=== PATIENT | female | born 1945 | race Native Hawaiian/Other Pacific Islander ===

== ENCOUNTER 2017-03-01 12:36 | Inpatient (IN) | payer MEDICARE ==
--- NOTE | 2017-03-01 13:46 | C.PDOC ---
History Of Present Illness 72 y/o female with Hx of Bipolar disorder and palpitations presents to ED sent by Dr. Mukherjee with complaints of sob and chest tightness for 5 days. Patient went to see pmd for same symptoms who advised she come to ed for further evaluation.Patient states she is complaint with her medication and denies fever , chills, headache, dizziness, nausea or any other complaints at this time. Time Seen by Provider: 03/01/17 13:19 Chief Complaint (Nursing): Shortness Of Breath History Per: Patient History/Exam Limitations: no limitations Onset/Duration Of Symptoms: Days Current Symptoms Are (Timing): Still Present Quality: Tightness Past Medical History Reviewed: Historical Data, Nursing Documentation, Vital Signs Vital Signs: Last Vital Signs Temp 98.3 F 03/01/17 12:54 Pulse 76 03/01/17 17:30 Resp 15 03/01/17 16:31 BP 111/72 03/01/17 16:31 Pulse Ox 95 03/01/17 18:09 - Medical History PMH: Bipolar Disorder, Hypercholesterolemia Surgical History: No Surg Hx Family History: States: No Known Family Hx - Social History Hx Alcohol Use: No Hx Substance Use: No - Immunization History Hx Tetanus Toxoid Vaccination: No Hx Influenza Vaccination: Yes Hx Pneumococcal Vaccination: No Review Of Systems Constitutional: Negative for: Fever, Chills Cardiovascular: Positive for: Chest Pain Respiratory: Positive for: Shortness of Breath. Negative for: Cough Gastrointestinal: Negative for: Nausea, Vomiting Skin: Negative for: Rash Neurological: Negative for: Headache Physical Exam - Physical Exam Appears: Non-toxic, No Acute Distress Skin: Normal Color, Warm, Dry, No Rash Head: Atraumatic, Normacephalic Oral Mucosa: Moist Neck: Normal ROM, Supple Chest: Symmetrical Cardiovascular: Rhythm Regular Respiratory: Normal Breath Sounds, No Rales, No Rhonchi, No Wheezing Gastrointestinal/Abdominal: Soft, No Tenderness, No Guarding, No Rebound Extremity: Normal ROM, No Pedal Edema Neurological/Psych: Oriented x3, Normal Speech (speaking in full sentences) Gait: Steady ED Course And Treatment - Laboratory Results Result Diagrams: 03/01/17 14:10 03/01/17 14:10 Lab Interpretation: Abnormal ECG: Interpreted By Me ECG Rhythm: Sinus Rhythm, Nonspecific Changes ECG Interpretation: No Acute Changes Rate From EC O2 Sat by Pulse Oximetry: 95 (RA) Pulse Ox Interpretation: Normal - Radiology CXR: Viewed By Me (FINDINGS:), Read By Radiologist CXR Interpretation: Yes: COPD Progress Note: On re-evaluation lungs clear, in no distress Reassessment Condition: Unchanged - Physician Consult Information Physician Contacted: Avinash Mukherjee Outcome Of Conversation: admit to telemetry Medical Decision Making Medical Decision Making: Plan: CXR, ECG, UA, Blood work, IV fluids Disposition Discussed With Dr.: Avinash Mukherjee Doctor Will See Patient In The: Hospital - Disposition Disposition: HOSPITALIZED Disposition Time: 17:00 Condition: STABLE - POA Present On Arrival: None - Clinical Impression Clinical Impression: Dyspnea, Chest pain - PA / ELECTRICIAN RESEARCH / Resident Statement MD/DO has reviewed & agrees with the documentation as recorded. - Scribe Statement The provider has reviewed the documentation as recorded by the Lucienibpedro Hermosillo All medical record entries made by the Scribe were at my direction and personally dictated by me. I have reviewed the chart and agree that the record accurately reflects my personal performance of the history, physical exam, medical decision making, and the department course for this patient. I have also personally directed, reviewed, and agree with the discharge instructions and disposition. Decision To Admit - Pt Status Changed To: Hospital Disposition Of: Inpatient - Admit Certification Admit to Inpatient:: After my assessment, the patient will require hospitalization for at least two midnights. This is because of the severity of symptoms shown, intensity of services needed, and/or the medical risk in this patient being treated as an outpatient. - InPatient: Physician Admission Certification: I certify that this patient requires 2 or more midnights of care for the following reason:: Dyspnea, COPD. Chest Pain - . Bed Request Type: Telemetry Admitting Physician: Avinash Mukherjee Patient Diagnosis: Dyspnea, Chest pain
[2017-03-01 14:17] LABS: BASO % 0.1 % (0.0-2.0); EOS # 0.4 K/uL (0.0-0.7); EOS % 8.6 % (0.0-4.0); HEMATOCRIT 42.5 % (34.0-47.0); LYMPH # 2.2 K/uL (1.0-4.3); LYMPH % 43.8 % (20.0-40.0); MEAN CELL VOLUME 100.7 fL (81.0-99.0); MEAN CORPUSCULAR HEMOGLOBIN 34.8 pg (27.0-31.0); MEAN CORPUSCULAR HGB CONC 34.6 g/dL (33.0-37.0); MEAN PLATELET VOLUME 7.3 fL (7.2-11.7); MONO # 0.4 K/uL (0.0-0.8); MONO % 8.9 % (0.0-10.0); NRBC % 0.2 % (0.0-2.0); RED CELL DISTRIBUTION WIDTH 12.6 % (11.5-14.5); WHITE BLOOD COUNT 5.1 K/uL (4.8-10.8)
--- NOTE | 2017-03-01 14:22 | RAD ---
HISTORY: SOB COMPARISON: No prior. TECHNIQUE: Chest PA and lateral FINDINGS: LUNGS: Are markedly hyperexpanded lung rojo bilaterally combine with mild tenting of the bilateral hemidiaphragms and flattening of the hemidiaphragms. The anteroposterior chest diameter is increased with a diminished peripheral pulmonary arterial pattern. Retrosternal spaces prominently hyperlucent as well. Findings suspicious for COPD with potential pulmonary artery hypertension. PLEURA: No significant pleural effusion identified. No pneumothorax apparent. CARDIOVASCULAR: Attenuated peripheral pulmonary artery pattern is suspicious for pulmonary artery hypertension. OSSEOUS STRUCTURES: No significant abnormalities. VISUALIZED UPPER ABDOMEN: Normal. OTHER FINDINGS: None. IMPRESSION: COPD. No acute infiltrate pleural effusion or pneumothorax. Possible pulmonary artery hypertension.
[2017-03-01 14:27] LABS: RBC URINE 3 /hpf (0-3); URINE BILIRUBIN NEGATIVE (NEGATIVE); URINE BLOOD 1+ (NEGATIVE); URINE COLOR Yellow (YELLOW); URINE GLUCOSE (UA) NORMAL (Normal); URINE KETONE NEGATIVE (NEGATIVE); URINE LEUKOCYTE ESTERASE TRACE Leu/uL (Negative); URINE PROTEIN NEGATIVE (NEGATIVE); URINE UROBILINOGEN NORMAL mg/dL (0.2-1.0); WBC URINE 1 /hpf (0-5)
[2017-03-01 14:28] LABS: CHLORIDE 97 mmol/L (98-107); POTASSIUM 3.7 mmol/L (3.6-5.2); SODIUM 126 mmol/L (132-148)
[2017-03-01 14:31] LABS: ALKALINE PHOSPHATASE 85 U/L (38-126); ALT/SGPT 59 U/L (9-52); AST/SGOT 46 U/L (14-36); BILIRUBIN,TOTAL 0.4 mg/dL (0.2-1.3); BLOOD UREA NITROGEN 7 mg/dL (7-17); CALCIUM 8.8 mg/dl (8.6-10.4); CARBON DIOXIDE 21 mmol/L (22-30); GFR AFRICAN-AMERICAN > 60; GLUCOSE,RANDOM 94 mg/dL (65-105); TOTAL PROTEIN 7.1 g/dL (6.3-8.3)
[2017-03-01] MEDS: Sodium Chloride 0.9% 1,000 ML IV SCH (15:05)
[2017-03-01] MEDS ORDERED: Sodium Chloride 0.9% 1,000 ML ONE (15:08)
[2017-03-01] MEDS ORDERED: Albuterol-Ipratrop 3 mg / 0.5 (3 ml) UD ONE (17:28)
[2017-03-01] MEDS: Albuterol-Ipratrop 3 mg / 0.5 (3 ml) UD INH SCH (17:32)
[2017-03-01] MEDS: Enoxaparin 30 mg Syringe SC SCH (22:09)
[2017-03-02] MEDS: Sodium Chloride 0.9% 1,000 ML IV SCH ×5 (00:15→19:50)
[2017-03-02] MEDS: Albuterol-Ipratrop 3 mg / 0.5 (3 ml) UD INH SCH ×4 (07:40→20:02)
--- NOTE | 2017-03-02 08:53 | CP.PCM.HP ---
History of Present Illness - History of Present Illness History of Present Illness: CC: chest pain 72 y/o female with Bipolar disorder & heavy tobacco use. Patient seen early this month for wt loss and palpitation. She had CXR and labs w/ COPD, abn LFT and b normal TFT. Patient return yesterday c/o having chest tightness x 5 nights. Chest tightness is worsening that she felt fainty on 5th night. She was seen in office w/ abn EKG - advise admission. Present on Admission - Present on Admission Any Indicators Present on Admission: Yes History of DVT/PE: No History of Uncontrolled Diabetes: No Urinary Catheter: No Decubitus Ulcer Present: No Review of Systems - Review of Systems Systems not reviewed;Unavailable: Acuity of Condition - Constitutional Constitutional: Weight Loss, Weakness. absent: Fever, Frequent Falls, Headache , Lethargy, Sleep Apnea - EENT Eyes: absent: Change in Vision, Requires Corrective Lenses, Sees Flashes, Spots in Vision Ears: absent: Decreased Hearing Nose/Mouth/Throat: absent: Nasal Congestion, Nasal Discharge, Change in Voice, Dry Mouth - Cardiovascular Cardiovascular: Chest Pain, Dyspnea, Palpitations. absent: Chest Pain with Activity, Diaphoresis, Edema, Irregular Heart Rhythm, Leg Edema, Lightheadedness , Pedal Edema - Gastrointestinal Gastrointestinal: absent: Diarrhea, Dysphagia, Heartburn, Loose Stools, Nausea - Musculoskeletal Musculoskeletal: Myalgias. absent: Abnormal Gait, Back Pain, Joint Swelling, Limited Range of Motion - Integumentary Integumentary: absent: Bleeding Lesions, New Lesions, Rash, Skin Pain, Swelling Past Patient History - Infectious Disease Hx of Infectious Diseases: None - Past Medical History & Family History Past Medical History?: Yes - Past Social History Smoking Status: Current Some Days Smoker - CARDIAC Hx Hypercholesterolemia: Yes - MUSCULOSKELETAL/RHEUMATOLOGICAL Hx Falls: No - PSYCHIATRIC Hx Bipolar Disorder: Yes Hx Substance Use: No - SURGICAL HISTORY Hx Surgeries: Yes Other/Comment: ovarian sx Meds Allergies/Adverse Reactions: Allergies Allergy/AdvReac Type Severity Reaction Status Date / Time No Known Allergies Allergy Verified 03/01/17 13:08 Physical Exam - Constitutional Appears: No Acute Distress - Eye Exam Eye Exam: Normal appearance - ENT Exam ENT Exam: Mucous Membranes Moist - Neck Exam Neck exam: Positive for: Full Rom. Negative for: Lymphadenopathy, Thyromegaly - Respiratory Exam Respiratory Exam: Decreased Breath Sounds. absent: Rales, Rhonchi, Wheezes - Cardiovascular Exam Cardiovascular Exam: REGULAR RHYTHM, +S1, +S2, Systolic Murmur. absent: Gallop , JVD - GI/Abdominal Exam GI & Abdominal Exam: Soft. absent: Guarding, Mass, Tenderness - Extremities Exam Extremities exam: Positive for: full ROM, normal capillary refill. Negative for : calf tenderness, joint swelling, pedal edema Results - Vital Signs Recent Vital Signs: Last Vital Signs Temp 97.7 F 03/01/17 23:31 Pulse 67 03/02/17 04:13 Resp 19 03/01/17 23:31 BP 100/60 03/01/17 23:31 Pulse Ox 98 03/01/17 23:31 - Labs Result Diagrams: 03/01/17 14:10 03/01/17 14:10 Labs: Laboratory Results - last 24 hr 03/01/17 03/01/17 03/01/17 14:10 14:10 14:10 WBC 5.1 RBC 4.22 Hgb 14.7 Hct 42.5 MCV 100.7 H MCH 34.8 H MCHC 34.6 RDW 12.6 Plt Count 161 MPV 7.3 Neut % (Auto) 38.6 L Lymph % (Auto) 43.8 H [place] % (Auto) 8.9 Eos % (Auto) 8.6 H Baso % (Auto) 0.1 Neut # 2.0 Lymph # 2.2 [place] # 0.4 Eos # 0.4 Baso # 0.0 Sodium 126 L Potassium 3.7 Chloride 97 L Carbon Dioxide 21 L Anion Gap 12 BUN 7 Creatinine 0.5 L Est GFR ( Amer) > 60 Est GFR (Non-Af Amer) > 60 Random Glucose 94 Calcium 8.8 Total Bilirubin 0.4 AST 46 H ALT 59 H Alkaline Phosphatase 85 CK-MB (Mass) 1.17 Troponin I < 0.0120 NT-Pro-B Natriuret Pep 46.1 Total Protein 7.1 Albumin 3.5 Globulin 3.6 Albumin/Globulin Ratio 1.0 Lipase 127 Urine Color Yellow Urine Clarity Clear Urine pH 6.0 Ur Specific [place] 1.012 Urine Protein Negative Urine Glucose (UA) Normal Urine Ketones Negative Urine Blood 1+ H Urine Nitrate Negative Urine Bilirubin Negative Urine Urobilinogen Normal Ur Leukocyte Esterase Trace Urine WBC (Auto) 1 Urine RBC (Auto) 3 Ur Squamous Epith Cells < 1 - EKG Data EKG Interpreted by: Myself EKG shows normal: Sinus rhythm (T wave inverted on V2-V5) Assessment & Plan - Assessment and Plan (Free Text) Assessment: Chest pain/ abn EKG COPD w/ likely Pulm HTN; Reza polar disorder Abn LFT with Wt loss/ hyponatremia Cardiac work up for CT of abd Supportive care
--- NOTE | 2017-03-02 09:57 | CP.PCM.CON ---
<Lu Ayala - Last Filed: 03/02/17 15:43> History of Present Illness - History of Present Illness History of Present Illness: Pulmonology Consult Note for Dr. Martinez'tin Service Reason for Consult: " COPD, hx Pulmonary HTN " HPI: 72 F with PMHx of Bipolar Disorder, COPD, hx Pulmonary HTN, History of Tobacco Abuse presented to the ED with SOB, chest tightness x 5 days. Patient reports her breathing has become labored and harder for her to breath. Patient was seen in PMD's office and was sent in due to abnormal EKG findings. Patient is for nuclear stress test today with Dr. Bartlett. Denied fever, chills, headache, chest pain, abdominal pain, n/v/d/c, or urinary symptoms. PMHx: Bipolar Disorder, COPD, hx Pulmonary HTN, History of Tobacco Abuse PSHx: right oophorectomy Meds: As per JUL, confirmed and reviewed All: NKDA SHx: Admitted to smoking 15 cigarretes per day for 30 years, quit for 11 years and resumed smoking for another 5 years. She quit 4 days ago. Denied ETOH or illicit drug use FHx: Unremarkable Past Patient History - Infectious Disease Hx of Infectious Diseases: None - Past Medical History & Family History Past Medical History?: Yes - Past Social History Smoking Status: Current Some Days Smoker - CARDIAC Hx Hypercholesterolemia: Yes - MUSCULOSKELETAL/RHEUMATOLOGICAL Hx Falls: No - PSYCHIATRIC Hx Bipolar Disorder: Yes Hx Substance Use: No - SURGICAL HISTORY Hx Surgeries: Yes Other/Comment: ovarian sx Meds Allergies/Adverse Reactions: Allergies Allergy/AdvReac Type Severity Reaction Status Date / Time No Known Allergies Allergy Verified 03/01/17 13:08 - Medications Medications: Current Medications Albuterol/Ipratropium (Duoneb 3 Mg/0.5 Mg (3 Ml) Ud) 3 ml INH RQID [facility] Last Admin: 03/02/17 07:40 Dose: 3 ml Carbamazepine (Tegretol) 200 mg PO DAILY [facility] Enoxaparin Sodium (Lovenox) 30 mg SC Q12 [facility] Last Admin: 03/01/17 22:09 Dose: 30 mg Sodium Chloride (Sodium Chloride 0.9%) 1,000 mls @ 100 mls/hr IV .Q10H [facility] Last Admin: 03/02/17 04:46 Dose: 100 mls/hr Physical Exam - Constitutional Appears: No Acute Distress, Cachectic, Chronically Ill - Head Exam Head Exam: NORMAL INSPECTION, NORMOCEPHALIC - Eye Exam Eye Exam: EOMI, Normal appearance, PERRL Pupil Exam: NORMAL ACCOMODATION - ENT Exam ENT Exam: Mucous Membranes Moist, Normal Exam - Respiratory Exam Respiratory Exam: Decreased Breath Sounds, Prolonged Expiratory Phase, NORMAL BREATHING PATTERN - Cardiovascular Exam Cardiovascular Exam: REGULAR RHYTHM, RRR - GI/Abdominal Exam GI & Abdominal Exam: Normal Bowel Sounds, Soft. absent: Distended, Tenderness - Extremities Exam Extremities exam: Positive for: normal inspection, pedal pulses present ( clubbing noted on fingers ). Negative for: pedal edema, tenderness - Neurological Exam Neurological exam: Alert, Oriented x3 - Skin Skin Exam: Dry, Intact, Normal Color, Warm Results - Vital Signs Recent Vital Signs: Last Vital Signs Temp 98 F 03/02/17 08:05 Pulse 65 03/02/17 08:05 Resp 18 03/02/17 08:05 BP 95/57 L 03/02/17 08:05 Pulse Ox 98 03/02/17 08:05 - Labs Result Diagrams: 03/01/17 14:10 03/01/17 14:10 Labs: Laboratory Results - last 24 hr 03/01/17 03/01/17 03/01/17 14:10 14:10 14:10 WBC 5.1 RBC 4.22 Hgb 14.7 Hct 42.5 MCV 100.7 H MCH 34.8 H MCHC 34.6 RDW 12.6 Plt Count 161 MPV 7.3 Neut % (Auto) 38.6 L Lymph % (Auto) 43.8 H [place] % (Auto) 8.9 Eos % (Auto) 8.6 H Baso % (Auto) 0.1 Neut # 2.0 Lymph # 2.2 [place] # 0.4 Eos # 0.4 Baso # 0.0 Sodium 126 L Potassium 3.7 Chloride 97 L Carbon Dioxide 21 L Anion Gap 12 BUN 7 Creatinine 0.5 L Est GFR ( Amer) > 60 Est GFR (Non-Af Amer) > 60 Random Glucose 94 Calcium 8.8 Total Bilirubin 0.4 AST 46 H ALT 59 H Alkaline Phosphatase 85 CK-MB (Mass) 1.17 Troponin I < 0.0120 NT-Pro-B Natriuret Pep 46.1 Total Protein 7.1 Albumin 3.5 Globulin 3.6 Albumin/Globulin Ratio 1.0 Lipase 127 Urine Color Yellow Urine Clarity Clear Urine pH 6.0 Ur Specific [place] 1.012 Urine Protein Negative Urine Glucose (UA) Normal Urine Ketones Negative Urine Blood 1+ H Urine Nitrate Negative Urine Bilirubin Negative Urine Urobilinogen Normal Ur Leukocyte Esterase Trace Urine WBC (Auto) 1 Urine RBC (Auto) 3 Ur Squamous Epith Cells < 1 Assessment & Plan - Assessment and Plan (Free Text) Plan: COPD Hx of Tobacco Abuse Weight loss CXR 03/01: COPD. No acute infiltrate pleural effusion or pneumothorax. Possible pulmonary artery hypertension. F/U CT CHEST, AB & P F/U ABG on ROOM AIR Started Duonebs Pulmicort Q12 Spiriva Solumedrol 40mg IVP daily Hyponatremia Hx of Tobacco Abuse Weight loss F/U CT CHEST, AB & P Hx of Pulmonary HTN Abnormal EKG findings Cardiology consulted- Dr. Rivera- help appreciated F/U Myocardial perfusion study F/U ECHO Hx of Tobacco Abuse Smoking Cessation encouraged Nicotine Patch Transaminitis F/U CHEST, AB & P with PO and IV contrast Hx Bipolar Disorder DW Jamie Guillermo DO, PGY-1 <Geronimo Martinez S - Last Filed: 03/02/17 17:46> Meds - Medications Medications: Current Medications Albuterol/Ipratropium (Duoneb 3 Mg/0.5 Mg (3 Ml) Ud) 3 ml INH RQID [facility] Last Admin: 03/02/17 13:33 Dose: 3 ml Budesonide (Pulmicort Respules) 0.5 mg INH RQ12 [facility] Carbamazepine (Tegretol) 200 mg PO DAILY [facility] Last Admin: 03/02/17 12:50 Dose: 200 mg Enoxaparin Sodium (Lovenox) 30 mg SC Q12 [facility] Last Admin: 03/02/17 12:50 Dose: 30 mg Sodium Chloride (Sodium Chloride 0.9%) 1,000 mls @ 100 mls/hr IV .Q10H [facility] Last Admin: 03/02/17 10:45 Dose: Not Given Methylprednisolone (Solu-Medrol) 40 mg IVP DAILY [facility] Nicotine (Nicoderm Cq) 1 patch TD DAILY [facility] Last Admin: 03/02/17 16:45 Dose: 1 patch Promethazine HCl (Phenergan Syrup) 12.5 mg PO Q6 PRN PRN Reason: Cough Tiotropium [place] (Spiriva) 18 mcg INH RQ24 [facility] Results - Vital Signs Recent Vital Signs: Last Vital Signs Temp 97.5 F L 03/02/17 15:30 Pulse 66 03/02/17 15:30 Resp 20 03/02/17 15:30 BP 126/61 03/02/17 15:30 Pulse Ox 96 03/02/17 15:30 - Labs Result Diagrams: 03/01/17 14:10 03/01/17 14:10 Labs: Laboratory Results - last 24 hr 03/02/17 16:49 Puncture Site Rba pCO2 37 pO2 72 L HCO3 24.2 ABG pH 7.41 ABG Total CO2 24.6 ABG O2 Saturation 96.0 ABG Base Excess -0.8 ABG Hemoglobin 13.7 ABG Carboxyhemoglobin 1.2 POC ABG HHb (Measured) 3.9 ABG Methemoglobin 0.8 Indra Test Pos A-a O2 Difference 31.0 Respiratory Index 0.4 Hgb O2 Saturation 94.0 L Liter Flow 0 FiO2 21.0 Attending/Attestation - Attestation I have personally seen and examined this patient.: Yes I have fully participated in the care of the patient.: Yes I have reviewed all pertinent clinical information: Yes Notes (Text): 03/02/17 17:46 patient seen and examined. Admitted with COPD exacerbation Continue nebulizer treatment, IV steroids CAT scan of the chest
[2017-03-02] MEDS ORDERED: Aminophylline 25 mg/ml Inj ONE (11:44)
[2017-03-02] MEDS: Enoxaparin 30 mg Syringe SC SCH ×2 (12:50→21:29)
--- NOTE | 2017-03-02 12:53 | CP.PCM.CON ---
History of Present Illness - History of Present Illness History of Present Illness: I was asked to see patient by Dr Mukherjee. Patient is a 72 year old female with PMH HTN, hypercholesterolemia who presents with palpitations and chest pain. The patient states symptoms began about 5 days ago. She had intermittent palpitations and chest pressure. She presented to [facility] (Formerly [facility]) for further management Review of Systems - Constitutional Constitutional: absent: As Per HPI, Anorexia, Chills, Daytime Sleepiness, Excessive Sweating, Fatigue, Fever, Frequent Falls, Headache, Increased Appetite , Lethargy, Malaise, Night Sweats, Snoring, Sleep Apnea, Weight Gain, Weight Loss, Weakness, Other - EENT Eyes: absent: As Per HPI, Blind Spots, Blurred Vision, Change in Vision, Decreased Night Vision, Diplopia, Discharge, Dry Eye, Exophthalmos, Floaters, Irritation, Itchy Eyes, Loss of Peripheral Vision, Pain, Photophobia, Requires Corrective Lenses, Sees Flashes, Spots in Vision, Tunnel Vision, Other Visual Disturbances, Loss of Vision, Other Ears: absent: As Per HPI, Decreased Hearing, Ear Discharge, Ear Pain, Tinnitus, Abnormal Hearing, Disequilibrium, Dizziness, Other Nose/Mouth/Throat: absent: As Per HPI, Epistaxis, Nasal Congestion, Nasal Discharge, Nasal Obstruction, Nasal Trauma, Nose Pain, Post Nasal Drip, Sinus Pain, Sinus Pressure, Bleeding Gums, Change in Voice, Dental Pain, Dry Mouth, Dysphagia, Halitosis, Hoarsness, Lip Swelling, Mouth Lesions, Mouth Pain, Odynophagia, Sore Throat, Throat Swelling, Tongue Swelling, Facial Pain, Neck Pain, Neck Mass, Other - Cardiovascular Cardiovascular: Chest Pain - Respiratory Respiratory: absent: As Per HPI, Cough, Dyspnea, Hemoptysis, Dyspnea on Exertion , Wheezing, Snoring, Stridor, Pain on Inspiration, Chest Congestion, Excessive Mucous Production, Change in Mucous Color, Pain with Coughing, Other - Gastrointestinal Gastrointestinal: absent: As Per HPI, Abdominal Pain, Belching, Bloating, Change in Bowel Habits, Change in Stool Character, Coffee Ground Emesis, Constipation, Cramping, Diarrhea, Dyspepsia, Dysphagia, Early Satiety, Excessive Flatus, Fecal Incontinence, Heartburn, Hematemesis, Hematochezia, Loose Stools, Melena, Nausea, Odynophagia, Temesmus, Vomiting, Other - Genitourinary Genitourinary: absent: As Per HPI, Change in Urinary Stream, Difficulty Urinating, Dysuria, Flank Pain, Hematuria, Pyuria, Nocturia, Urinary Incontinence, Urinary Frequency, Urinary Hesitance, Urinary Urgency, Voiding Freq/Small Amts, Freq UTI, Hx Renal/Bladder Calculi, Hx /Renal Surgery, Bladder Distension, Other - Musculoskeletal Musculoskeletal: absent: As Per HPI, Abnormal Gait, Arthralgias, Atrophy, Back Pain, Deformity, Joint Swelling, Limited Range of Motion, Loss of Height, Muscle Cramps, Muscle Weakness, Myalgias, Neck Pain, Numbness, Radiating Pain into Limb, Stiffness, Tingling, Other - Integumentary Integumentary: absent: As Per HPI, Acne, Alopecia, Bleeding Lesions, Change in Hair, Change in Nails, Change in Pigmentation, Changing Lesions, Dry Skin, Erythema, Furuncle, Hirsutism, Lesions, New Lesions, Non-Healing Lesions, Photosensitivity, Pruritus, Rash, Skin Pain, Skin Ulcer, Sores, Striae, Swelling , Unusual Bruising, Wounds, Jaundice, Other - Neurological Neurological: absent: As Per HPI, Abnormal Gait, Abnormal Hearing, Abnormal Movements, Abnormal Speech, Behavioral Changes, Burning Sensations, Confusion, Convulsions, Disequilibrium, Dizziness, Numbness, Focal Weakness, Frequent Falls , Headaches, Lack of Coordination, Loss of Vision, Memory Loss, Paresthesias, Radicular Pain, Restless Legs, Sensory Deficit, Syncope, Tingling, Tremor, Vertigo, Weakness, Other Visual Disturbances, Other - Psychiatric Psychiatric: absent: As Per HPI, Abnormal Sleep Pattern, Anhedonia, Anxiety, Auditory Hallucinations, Behavioral Changes, Change in Appetite, Change in Libido, Confusion, Depression, Difficulty Concentrating, Hallucinations, Homicidal Ideation, Hopelessness, Irritability, Memory Loss, Mood Swings, Panic Attacks, Paranoia, Suicidal Ideation, Visual Hallucinations, Tactile Hallucinations, Other - Endocrine Endocrine: absent: As Per HPI, Change in Body Appearance, Change in Libido, Cold Intolorance, Deepening of Voice, Excessive Sweating, Fatigue, Flushing, Heat Intolorance, Increase in Ring/Shoe/Hat Size, Palpitations, Polydipsia, Polyphagia, Polyuria, Other - Hematologic/Lymphatic Hematologic: absent: As Per HPI, Easy Bleeding, Easy Bruising, Lymphadenopathy, Other Past Patient History - Infectious Disease Hx of Infectious Diseases: None - Past Medical History & Family History Past Medical History?: Yes - Past Social History Smoking Status: Current Some Days Smoker - CARDIAC Hx Hypercholesterolemia: Yes - MUSCULOSKELETAL/RHEUMATOLOGICAL Hx Falls: No - PSYCHIATRIC Hx Bipolar Disorder: Yes Hx Substance Use: No - SURGICAL HISTORY Hx Surgeries: Yes Other/Comment: ovarian sx Meds Allergies/Adverse Reactions: Allergies Allergy/AdvReac Type Severity Reaction Status Date / Time No Known Allergies Allergy Verified 03/01/17 13:08 - Medications Medications: Current Medications Albuterol/Ipratropium (Duoneb 3 Mg/0.5 Mg (3 Ml) Ud) 3 ml INH RQID COUNTS INCLUDE 234 BEDS AT THE [facility] Last Admin: 03/02/17 07:40 Dose: 3 ml Carbamazepine (Tegretol) 200 mg PO DAILY [facility] Enoxaparin Sodium (Lovenox) 30 mg SC Q12 COUNTS INCLUDE 234 BEDS AT THE [facility] Last Admin: 03/01/17 22:09 Dose: 30 mg Sodium Chloride (Sodium Chloride 0.9%) 1,000 mls @ 100 mls/hr IV .Q10H COUNTS INCLUDE 234 BEDS AT THE [facility] Last Admin: 03/02/17 04:46 Dose: 100 mls/hr Iohexol (Omnipaque 240 (50 Ml)) 50 ml PO ONCE ONE Stop: 03/02/17 13:01 Physical Exam - Constitutional Appears: Non-toxic - Head Exam Head Exam: NORMAL INSPECTION - Eye Exam Eye Exam: Normal appearance - ENT Exam ENT Exam: Mucous Membranes Moist - Neck Exam Neck exam: Positive for: Full Rom - Respiratory Exam Respiratory Exam: NORMAL BREATHING PATTERN - Cardiovascular Exam Cardiovascular Exam: REGULAR RHYTHM - GI/Abdominal Exam GI & Abdominal Exam: Normal Bowel Sounds - Rectal Exam Rectal Exam: Deferred - Extremities Exam Extremities exam: Negative for: pedal edema - Back Exam Back exam: NORMAL INSPECTION - Neurological Exam Neurological exam: Alert, Oriented x3 - Psychiatric Exam Psychiatric exam: Normal Affect - Skin Skin Exam: Normal Color Results - Vital Signs Recent Vital Signs: Last Vital Signs Temp 98 F 03/02/17 08:05 Pulse 65 03/02/17 08:05 Resp 18 03/02/17 08:05 BP 95/57 L 03/02/17 08:05 Pulse Ox 98 03/02/17 08:05 - Labs Result Diagrams: 03/01/17 14:10 03/01/17 14:10 Labs: Laboratory Results - last 24 hr 10/25/17 10/25/17 10/25/17 14:10 14:10 14:10 WBC 5.1 RBC 4.22 Hgb 14.7 Hct 42.5 MCV 100.7 H MCH 34.8 H MCHC 34.6 RDW 12.6 Plt Count 161 MPV 7.3 Neut % (Auto) 38.6 L Lymph % (Auto) 43.8 H Pettis % (Auto) 8.9 Eos % (Auto) 8.6 H Baso % (Auto) 0.1 Neut # 2.0 Lymph # 2.2 Pettis # 0.4 Eos # 0.4 Baso # 0.0 Sodium 126 L Potassium 3.7 Chloride 97 L Carbon Dioxide 21 L Anion Gap 12 BUN 7 Creatinine 0.5 L Est GFR ( Amer) > 60 Est GFR (Non-Af Amer) > 60 Random Glucose 94 Calcium 8.8 Total Bilirubin 0.4 AST 46 H ALT 59 H Alkaline Phosphatase 85 CK-MB (Mass) 1.17 Troponin I < 0.0120 NT-Pro-B Natriuret Pep 46.1 Total Protein 7.1 Albumin 3.5 Globulin 3.6 Albumin/Globulin Ratio 1.0 Lipase 127 Urine Color Yellow Urine Clarity Clear Urine pH 6.0 Ur Specific Terral 1.012 Urine Protein Negative Urine Glucose (UA) Normal Urine Ketones Negative Urine Blood 1+ H Urine Nitrate Negative Urine Bilirubin Negative Urine Urobilinogen Normal Ur Leukocyte Esterase Trace Urine WBC (Auto) 1 Urine RBC (Auto) 3 Ur Squamous Epith Cells < 1 - EKG Data EKG Interpreted by: Myself Assessment & Plan (1) Chest pain Assessment and Plan: patient has symtpoms suggestive of angina. Recommend nuclear stress test. further recommendations based upon testing. Status: Acute
[2017-03-02] MEDS ORDERED: Iohexol 240 (50 ml) PO ONE (13:00)
[2017-03-02] MEDS ORDERED: Promethazine 12.5 mg/10 ml Syrup PO PRN (15:12)
[2017-03-02 15:33] VITALS: RESP 20
[2017-03-02] MEDS ORDERED: MethylPREDNISolone 40 mg Vial IVP ONE ×2 (15:45→17:10)
[2017-03-02 16:53] LABS: ABG ALLEN TEST POS; CARBOXYHEMOGLOBIN 1.2 % (0.5-1.5); DRAW SITE RBA; HHB 3.9 % (0.0-5.0); METHEMOGLOBIN 0.8 % (0.0-3.0)
[2017-03-02] MEDS ORDERED: Iodixanol 320 MG/ML 100 ML BOTTLE IV ONE (17:43)
--- NOTE | 2017-03-02 17:52 | CP.PCM.PN ---
Subjective - Date & Time of Evaluation Date of Evaluation: 03/02/17 Time of Evaluation: 17:50 - Subjective Subjective: nuclear stress test images reviewed. No evidence of myocardial ischemia. Normal left ventricular function Objective - Vital Signs/Intake and Output Vital Signs (last 24 hours): Temp Pulse Resp BP Pulse Ox 97.5 F L 66 20 126/61 96 03/02/17 15:30 03/02/17 15:30 03/02/17 15:30 03/02/17 15:30 03/02/17 15:30 Intake and Output: 03/02/17 03/02/17 06:59 18:59 Intake Total 200 Balance 200 - Medications Medications: Current Medications Albuterol/Ipratropium (Duoneb 3 Mg/0.5 Mg (3 Ml) Ud) 3 ml INH RQID [facility] Last Admin: 03/02/17 13:33 Dose: 3 ml Budesonide (Pulmicort Respules) 0.5 mg INH RQ12 [facility] Carbamazepine (Tegretol) 200 mg PO DAILY [facility] Last Admin: 03/02/17 12:50 Dose: 200 mg Enoxaparin Sodium (Lovenox) 30 mg SC Q12 [facility] Last Admin: 03/02/17 12:50 Dose: 30 mg Sodium Chloride (Sodium Chloride 0.9%) 1,000 mls @ 100 mls/hr IV .Q10H [facility] Last Admin: 03/02/17 10:45 Dose: Not Given Methylprednisolone (Solu-Medrol) 40 mg IVP DAILY [facility] Nicotine (Nicoderm Cq) 1 patch TD DAILY [facility] Last Admin: 03/02/17 16:45 Dose: 1 patch Promethazine HCl (Phenergan Syrup) 12.5 mg PO Q6 PRN PRN Reason: Cough Tiotropium [place] (Spiriva) 18 mcg INH RQ24 [facility] - Labs Labs: 03/01/17 14:10 03/01/17 14:10 Assessment and Plan (1) Chest pain Status: Acute
--- NOTE | 2017-03-02 19:00 | CT ---
PROCEDURE: CT Chest, Abdomen and Pelvis with intravenous contrast HISTORY: History of tobacco abuse and weight loss. COMPARISON: None. TECHNIQUE: IV dose administered: 100 cc Visipaque 320. Radiation dose: Total exam DLP = 279.03 mGy-cm. This CT exam was performed using one or more of the following dose reduction techniques: Automated exposure control, adjustment of the mA and/or kV according to patient size, and/or use of iterative reconstruction technique. FINDINGS: CT CHEST WITH CONTRAST: LUNGS: Hyperinflation, manifestations of COPD. No active pulmonary disease. MEDIASTINUM: Unremarkable. Normal caliber aorta and pulmonary arterial trunk. No aortic dissection. Normal size heart. LYMPH NODES: Unremarkable. PLEURA: Unremarkable. No pneumothorax. No pleural fluid. BONES: Unremarkable. OTHER FINDINGS: None. CT ABDOMEN AND PELVIS: LIVER: Hepatic steatosis. No focal masses. No intrahepatic bile duct dilatation or perihepatic ascites. Incidental finding(s): Sub cm hypodensities too small to characterize, likely benign hepatic cysts. GALLBLADDER AND BILE DUCTS: No gallstones identified. Dilated duct common bile maximum diameter 11 mm. This tapers normally. The distal common bile duct is unremarkable as is pancreatic duct. No pancreatic head, body or tail masses identified. PANCREAS: Unremarkable. No gross lesion or ductal dilatation. SPLEEN: Unremarkable. ADRENALS: Unremarkable. No mass. KIDNEYS AND URETERS: Unremarkable. No hydronephrosis. No solid mass. VASCULATURE: Unremarkable. No aortic aneurysm. BOWEL: Unremarkable. No obstruction. No gross mural thickening. APPENDIX: Normal appendix. PERITONEUM: Unremarkable. No free fluid. No free air. LYMPH NODES: Unremarkable. No enlarged lymph nodes. BLADDER: Unremarkable. REPRODUCTIVE: Unremarkable. BONES: No acute fracture. OTHER FINDINGS: None. IMPRESSION: No significant or acute findings to account for/ related to the clinical presentation. Additional benign and/or incidental findings described above.
[2017-03-02] MEDS: Budesonide 0.5 mg/2 ml Inhal Susp UD INH SCH (20:03)
--- NOTE | 2017-03-02 23:15 | CARD ---
APPROVED REPORT EKG Measurement Heart [id number] <Conclusion> Normal sinus rhythm Possible Anterior infarct, age undetermined Abnormal ECG
[2017-03-02 23:30] VITALS: TEMP 97.9; O2SAT 97
[2017-03-03 07:13] LABS: CHLORIDE 102 mmol/L (98-107); POTASSIUM 3.6 mmol/L (3.6-5.2); SODIUM 132 mmol/L (132-148)
[2017-03-03 07:16] LABS: BLOOD UREA NITROGEN 6 mg/dL (7-17); CALCIUM 8.1 mg/dl (8.6-10.4); CARBON DIOXIDE 25 mmol/L (22-30); GFR AFRICAN-AMERICAN > 60; GLUCOSE,RANDOM 95 mg/dL (65-105)
--- NOTE | 2017-03-03 07:37 | CP.PCM.PN ---
Subjective - Date & Time of Evaluation Date of Evaluation: 03/03/17 Time of Evaluation: 07:20 - Subjective Subjective: patient feels well. denies chest pain or dyspnea Objective - Vital Signs/Intake and Output Vital Signs (last 24 hours): Temp Pulse Resp BP Pulse Ox 97.9 F 82 20 97/60 L 97 03/02/17 23:28 03/02/17 23:28 03/02/17 23:28 03/02/17 23:28 03/02/17 23:28 Intake and Output: 03/03/17 03/03/17 06:59 18:59 Intake Total 900 Balance 900 - Medications Medications: Current Medications Albuterol/Ipratropium (Duoneb 3 Mg/0.5 Mg (3 Ml) Ud) 3 ml INH RQID [facility] Last Admin: 03/02/17 20:02 Dose: 3 ml Budesonide (Pulmicort Respules) 0.5 mg INH RQ12 [facility] Last Admin: 03/02/17 20:03 Dose: 0.5 mg Carbamazepine (Tegretol) 200 mg PO DAILY [facility] Last Admin: 03/02/17 12:50 Dose: 200 mg Enoxaparin Sodium (Lovenox) 30 mg SC Q12 [facility] Last Admin: 03/02/17 21:29 Dose: 30 mg Sodium Chloride (Sodium Chloride 0.9%) 1,000 mls @ 100 mls/hr IV .Q10H [facility] Last Admin: 03/02/17 19:50 Dose: 100 mls/hr Methylprednisolone (Solu-Medrol) 40 mg IVP DAILY [facility] Nicotine (Nicoderm Cq) 1 patch TD DAILY [facility] Last Admin: 03/02/17 16:45 Dose: 1 patch Promethazine HCl (Phenergan Syrup) 12.5 mg PO Q6 PRN PRN Reason: Cough Last Admin: 03/03/17 00:42 Dose: 12.5 mg Tiotropium [place] (Spiriva) 18 mcg INH RQ24 [facility] - Labs Labs: 03/01/17 14:10 03/03/17 06:35 - Constitutional Appears: Non-toxic - Head Exam Head Exam: NORMAL INSPECTION - Eye Exam Eye Exam: Normal appearance - ENT Exam ENT Exam: Mucous Membranes Moist - Neck Exam Neck Exam: Full ROM - Respiratory Exam Respiratory Exam: NORMAL BREATHING PATTERN - Cardiovascular Exam Cardiovascular Exam: REGULAR RHYTHM - Rectal Exam Rectal Exam: Deferred - Extremities Exam Extremities Exam: absent: Pedal Edema - Back Exam Back Exam: NORMAL INSPECTION - Neurological Exam Neurological Exam: Alert - Psychiatric Exam Psychiatric exam: Normal Affect - Skin Skin Exam: Normal Color Assessment and Plan (1) Chest pain Assessment & Plan: I reviewed the stress test with the patient. There is no evidence of myocardial ischemia. Recommend medical therapy and risk factor modification. stable for d/c from cardiac standpoint. Status: Acute
[2017-03-03 07:54] VITALS: BP 100/62; PULSE 70
[2017-03-03] MEDS ORDERED: Tiotropium 18 mcg Cap For Inhalation INH SCH (08:00)
[2017-03-03] MEDS: Budesonide 0.5 mg/2 ml Inhal Susp UD INH SCH (08:08)
[2017-03-03] MEDS: Albuterol-Ipratrop 3 mg / 0.5 (3 ml) UD INH SCH (08:08)
--- NOTE | 2017-03-03 08:19 | CP.PCM.PN ---
Subjective - Date & Time of Evaluation Date of Evaluation: 03/03/17 Time of Evaluation: 08:10 - Subjective Subjective: Pt feels much better; no more chest pain, (+) palpitation and feels weak c/o not moving (+) appetite is better, no SOB, (+) dry cough Objective - Vital Signs/Intake and Output Vital Signs (last 24 hours): Temp Pulse Resp BP Pulse Ox 97.9 F 70 20 100/62 97 03/03/17 07:54 03/03/17 07:54 03/03/17 07:54 03/03/17 07:54 03/03/17 07:54 Intake and Output: 03/03/17 03/03/17 06:59 18:59 Intake Total 900 Balance 900 - Medications Medications: Current Medications Albuterol/Ipratropium (Duoneb 3 Mg/0.5 Mg (3 Ml) Ud) 3 ml INH RQID [facility] Last Admin: 03/03/17 08:08 Dose: 3 ml Budesonide (Pulmicort Respules) 0.5 mg INH RQ12 [facility] Last Admin: 03/03/17 08:08 Dose: 0.5 mg Carbamazepine (Tegretol) 200 mg PO DAILY [facility] Last Admin: 03/02/17 12:50 Dose: 200 mg Enoxaparin Sodium (Lovenox) 30 mg SC Q12 [facility] Last Admin: 03/02/17 21:29 Dose: 30 mg Sodium Chloride (Sodium Chloride 0.9%) 1,000 mls @ 100 mls/hr IV .Q10H [facility] Last Admin: 03/02/17 19:50 Dose: 100 mls/hr Methylprednisolone (Solu-Medrol) 40 mg IVP DAILY [facility] Nicotine (Nicoderm Cq) 1 patch TD DAILY [facility] Last Admin: 03/02/17 16:45 Dose: 1 patch Promethazine HCl (Phenergan Syrup) 12.5 mg PO Q6 PRN PRN Reason: Cough Last Admin: 03/03/17 00:42 Dose: 12.5 mg Tiotropium [place] (Spiriva) 18 mcg INH RQ24 [facility] Last Admin: 03/03/17 08:08 Dose: 18 mcg - Labs Labs: 03/01/17 14:10 03/03/17 06:35 - Constitutional Appears: No Acute Distress - Eye Exam Eye Exam: Normal appearance - ENT Exam ENT Exam: Mucous Membranes Moist - Neck Exam Neck Exam: Full ROM. absent: Lymphadenopathy, Thyromegaly - Respiratory Exam Respiratory Exam: Clear to Ausculation Bilateral. absent: Rales, Rhonchi, Wheezes - Cardiovascular Exam Cardiovascular Exam: +S1, +S2, Murmur. absent: Gallop, REGULAR RHYTHM - GI/Abdominal Exam GI & Abdominal Exam: Soft. absent: Tenderness - Exam External exam: absent: Ecchymosis, Lacerations, Swelling - Extremities Exam Extremities Exam: Full ROM. absent: Calf Tenderness, Joint Swelling, Pedal Edema Assessment and Plan - Assessment and Plan (Free Text) Assessment: Chest pain; Abn EKG COPD w/ Pulm HTN; Wt loss For discharge CT noted - no cancer to account wt loss will cont Spiriva/ Breo on OPD
[2017-03-03] MEDS: Enoxaparin 30 mg Syringe SC SCH (09:50)
[2017-03-03] MEDS ORDERED: MethylPREDNISolone 40 mg Vial IVP SCH (10:00)
[2017-03-03] MEDS ORDERED: Pneumococcal 23-Valent Vaccine IM ONE (10:35)
--- NOTE | 2017-03-03 13:42 | CP.PCM.PN ---
Subjective - Date & Time of Evaluation Date of Evaluation: 03/03/17 Time of Evaluation: 09:00 - Subjective Subjective: Pulmonology Note for Dr. Martinez's Service Patient was seen and examined at bedside. Patient reports breathing improved. Denied fever, chills, headache, chest pain, SOB, cough abdominal pain, n/v/d/c, or urinary symptoms. Objective - Vital Signs/Intake and Output Vital Signs (last 24 hours): Temp Pulse Resp BP Pulse Ox 97.9 F 70 20 100/62 97 03/03/17 07:54 03/03/17 07:54 03/03/17 07:54 03/03/17 07:54 03/03/17 07:54 Intake and Output: 03/03/17 03/03/17 06:59 18:59 Intake Total 900 Balance 900 - Medications Medications: Current Medications Albuterol/Ipratropium (Duoneb 3 Mg/0.5 Mg (3 Ml) Ud) 3 ml INH RQID [facility] Last Admin: 03/03/17 08:08 Dose: 3 ml Budesonide (Pulmicort Respules) 0.5 mg INH RQ12 [facility] Last Admin: 03/03/17 08:08 Dose: 0.5 mg Carbamazepine (Tegretol) 200 mg PO DAILY [facility] Last Admin: 03/03/17 09:51 Dose: 200 mg Enoxaparin Sodium (Lovenox) 30 mg SC Q12 [facility] Last Admin: 03/03/17 09:50 Dose: 30 mg Sodium Chloride (Sodium Chloride 0.9%) 1,000 mls @ 100 mls/hr IV .Q10H [facility] Last Admin: 03/02/17 19:50 Dose: 100 mls/hr Methylprednisolone (Solu-Medrol) 40 mg IVP DAILY [facility] Last Admin: 03/03/17 09:51 Dose: 40 mg Nicotine (Nicoderm Cq) 1 patch TD DAILY [facility] Last Admin: 03/03/17 09:52 Dose: 1 patch Promethazine HCl (Phenergan Syrup) 12.5 mg PO Q6 PRN PRN Reason: Cough Last Admin: 03/03/17 00:42 Dose: 12.5 mg Tiotropium [place] (Spiriva) 18 mcg INH RQ24 [facility] Last Admin: 03/03/17 08:08 Dose: 18 mcg - Labs Labs: 03/01/17 14:10 03/03/17 06:35 - Additional Findings Additional findings: - Constitutional Appears: No Acute Distress, Cachectic, Chronically Ill - Head Exam Head Exam: NORMAL INSPECTION, NORMOCEPHALIC - Eye Exam Eye Exam: EOMI, Normal appearance, PERRL Pupil Exam: NORMAL ACCOMODATION - ENT Exam ENT Exam: Mucous Membranes Moist, Normal Exam - Respiratory Exam Respiratory Exam: Decreased Breath Sounds, Prolonged Expiratory Phase, NORMAL BREATHING PATTERN - Cardiovascular Exam Cardiovascular Exam: REGULAR RHYTHM, RRR - GI/Abdominal Exam GI & Abdominal Exam: Normal Bowel Sounds, Soft. absent: Distended, Tenderness - Extremities Exam Extremities exam: Positive for: normal inspection, pedal pulses present ( clubbing noted on fingers ). Negative for: pedal edema, tenderness - Neurological Exam Neurological exam: Alert, Oriented x3 - Skin Skin Exam: Dry, Intact, Normal Color, Warm Assessment and Plan - Assessment and Plan (Free Text) Plan: COPD Hx of Tobacco Abuse Weight loss CXR 03/01: COPD. No acute infiltrate pleural effusion or pneumothorax. Possible pulmonary artery hypertension. CT CHEST, AB & P - No significant or acute findings to account for/ related to the clinical presentation. Additional benign and/or incidental findings described above. ABG on ROOM AIR - pO2 - 72 on RA Started Duonebs Pulmicort Q12 Sp[facility] Solumedrol 40mg IVP daily Hyponatremia Hx of Tobacco Abuse Weight loss CT CHEST, AB & P - No significant or acute findings to account for/ related to the clinical presentation. Additional benign and/or incidental findings described above. Hx of Pulmonary HTN Abnormal EKG findings Cardiology consulted- Dr. Rivera- help appreciated Myocardial perfusion study - No evidence of myocardial ischemia. Normal left ventricular function Hx of Tobacco Abuse Smoking Cessation encouraged Nicotine Patch Transaminitis CT CHEST, AB & P - No significant or acute findings to account for/ related to the clinical presentation. Additional benign and/or incidental findings described above. Hx Bipolar Disorder Patient discharged as per primary - to continue steroid taper, continue Pulmicort Q12, Spiriva DW Jamie Guillermo DO, PGY-1
--- NOTE | 2017-03-09 13:48 | CARD ---
APPROVED REPORT Protocol: LEXISCAN Test Type: LEXISCAN STRESS Test Indications: SOB Target HR: 149 bpm Resting ECG: normal Resting Heart Rate: 65 bpm Resting Blood Pressure: 132/80mmHg submaximum (85%): 127 bpm TEST SUMMARY [id number]. INFUSIONDOSE 100:300.00.01.084/.0. [id number]. PROCEDURE Pharmacologic stress testing was performed using 0.4mg per 5ml of regadenoson given intravenously over 7-10 seconds. Reversal agent aminophyline 125 mg, given intravenously for Headache. POST EXERCISE Reason for Termination: Protocol Completed Target HR: No Max HR: 84 bpm 83% of Maximum Predicted HR: 149 bpm Exercise duration: 00:30 min:sec, 0 Stage Exercise capacity: 1.0METs Max Blood Pressure: 132/80mmHg Blood Pressure response to exercise: normal resting BP - appropriate response Heart Rate response to exercise: appropriate Chest Pain: No, none Angina index: 0 Arrhythmia: No, none ST Change: No, none Deviation: 0 mm INTERPRETATION Stress EKG Conclusion: AWAIT NUCLEAR IMAGES EXAM: Myocardial Perfusion STRESS/REST Imaging Protocol The imaging protocol used to acquire images was Stress Tc-99m/rest Tc-99m 1 day Stress Spect myocardial perfusion imaging was performed in supine position 45 minutes following the injection of 12.4 mCi of Tc-99 Myoview. Gated Rest Spect was performed 55 minutes after intravenous 32.4 mci Tc-99 Myoview injection. The images were gated to evaluate regional wall motion and calculate ventricular ejection fraction.Images were reconstructed using backfilter projection method in short horizontal and verticle long axis. Spect slices were generated. RESTING DATA EDV40.48kaKN4.80L/min1/3 Pk. Filling Rate1.30EDV/sec LV Time to Pk. Filling Seus408.69msec ESV8.00mlMyocardial Mass76.00gLV Time to Pk. Ejection Cmxm314.67msec Pk. Fill Rate3.04EDV/secAv. Heart Rate58.00bpm EF80.00%Pk. Emptying Rate4.37ESV/sec STRESS DATA EDV31.78coDV7.80L/min ESV5.00mlMyocardial Mass68.00g Pk. Fill Rate4.45EDV/sec EF84.00%Pk. Emptying Rate4.48ESV/sec 1/3 Pk. Filling Rate2.01EDV/secRegional WT score at stress:1.00 LV Time to Pk. Filling Rate:157.11msecRegional WM score at stress:0.00 LV Time to Pk. Ejection Rate:277.34msecSummed WT score at stress:4.00 Av. Heart Rate71.00bpmSummed WM score at stress:3.00 LV Perf. Quant 17 Seg. SSS3.00 17 Seg. SRS0.00 17 Seg. SDS3.00 Stress Defect Extent (% LAD)0.60Rest Defect Extent (% LAD)0.00Rev. Defect Extent (% LAD)0.00 Stress Defect Extent (% LCX)0.00Rest Defect Extent (% LCX)0.00Rev. Defect Extent (% LCX)0.00 Stress Defect Extent (% RCA)0.00Rest Defect Extent (% RCA)0.00Rev. Defect Extent (% RCA)0.00 Stress Defect Extent (% VANESSA)0.90Rest Defect Extent (% VANESSA)0.00Rev. Defect Extent (% VANESSA)0.40 Other Information Quality:Excellent IMPRESSION Normal Myocardial Perfusion exercise stress study Global LV Function: Normal Stress Test Summary: Nondiagnostic LV Perfusion Summary: Normal Left Ventricle LV Size/Shape: The left ventricle is normal size. LV Function:Left ventricle systolic function is normal. The Ejection Fraction is >55%. Regional Wall Motion:There is normal left ventricular wall motion. Metabolism/Perfusion There are no perfusion/metabolism defects. Conclusion 1. The stress and resting images show normal perfusion.
== END 2017-03-03 12:00 | disposition home or self-care (01) | DRG 191 ==
LOC: C.ER 12:36 → C.9E 15:59 → C.5S 19:29
PROVIDERS: ADMIT Internal Medicine; ATTEND Internal Medicine
DX: J44.1 Chronic obstructive pulmonary disease with (acute) exacerbation (principal); E87.1 Hypo-osmolality and hyponatremia; I27.20 Pulmonary hypertension, unspecified; Z68.1 Body mass index [BMI] 19.9 or less, adult; I10 Essential (primary) hypertension; F31.9 Bipolar disorder, unspecified; F17.200 Nicotine dependence, unspecified, uncomplicated